=== PATIENT | male | born 1970 | race Caucasian/White ===

== ENCOUNTER → 2024-03-22 13:59 | Outpatient (CLI) | payer OTHER, SELFPAY | PROVIDERS: Referring Provider Chiropractor; Visit Provider Chiropractor | DX: R06.02 Shortness of breath (principal); R94.2 Abnormal results of pulmonary function studies | CPT/HCPCS: 94060 ==

== ENCOUNTER → 2024-11-26 15:02 | Outpatient (CLI) | payer OTHER, SELFPAY ==
--- NOTE | 2024-11-26 15:06 | DI.ECHO.S_ITS ---
[facility] : : [address] : : [place] : : [id number] : : Phone: [phone] Echocardiogram Report + + :Name: WILMAR HENAO Study Date: 11/26/2024 Height: 73 in : :Hospital ReadingLocation: Weight: 218 lb : : Gender: Male BSA: 2.2 m2 : :: 1970 Age: 54 yrs BP: 145/108 mmHg: :Reason For Study: ATRIAL FIBRILLATION : :Ordering Physician: ROMAN, : :IBETH Performed By: Grace Ragsdale : :Referring: IBETH OWENS : + + Interpretation Summary The ejection fraction is estimated to be 55-60%. Normal diastolic function. The right ventricular systolic function is normal. Pulmonary artery pressures cannot be estimated because of the lack of a measurable TR jet velocity but the IVC suggests a CVP of around 3 mmHg. No significant valvular abnormalities. Procedure: A two-dimensional transthoracic echocardiogram with color flow and Doppler was performed. The study quality was technically adequate. There is no prior echocardiogram noted for this patient. The patient was in sinus rhythm with heart rates between 76-86 bpm during the exam. Left Ventricle: The left ventricle is normal in size and wall thickness. The ejection fraction is estimated to be 55-60%. There are no obvious focal wall motion abnormalities noted but poor endocardial definition reduces the sensitivity for the detection of such. Normal diastolic function. Right Ventricle: The right ventricle is normal size. The right ventricular systolic function is normal. Atria: The left atrial size is normal. Right atrial size is normal. There is no Doppler evidence for an interatrial shunt. Mitral Valve: The mitral valve leaflets appear to open well. There is no mitral regurgitation noted. Aortic Valve: The aortic valve is trileaflet. The aortic valve opens well. There is no aortic valve stenosis. No aortic regurgitation is present. Tricuspid Valve: The tricuspid valve leaflets are thin and pliable. No tricuspid regurgitation. Pulmonary artery pressures cannot be estimated because of the lack of a measurable TR jet velocity but the IVC suggests a CVP of around 3 mmHg. Pulmonic Valve: The pulmonic valve leaflets are thin and pliable; valve motion is normal. There is trace pulmonic regurgitation. Great Vessels: The aortic root is normal size. The dimensions of the ascending aorta are normal. The IVC is of normal diameter and collapses greater than 50% with a sniff. This suggests a low right atrial pressure of 3 mm Hg. Pericardium/ Pleura There is no pericardial effusion. There is no pleural effusion. MMode/2D Measurements & Calculations LVIDd: 4.5 cm LVOT diam: 2.2 cm LVIDs: 3.1 cm Ao root diam: 3.1 cm FS: 32.4 % asc Aorta Diam: 3.2 cm IVSd: 0.92 cm Ao Arch Diam (Prox Trans): 3.0 cm LVPWd: 0.95 cm LV mares. diameter/BSA (cm/m^2): 2.0 LV sys. diameter/BSA (cm/m^2): 1.4 LA A2 area: 12.0 cm2 RA long axis: 4.3 cm LA A4 area: 10.6 cm2 RA area: 12.2 cm2 LA length (vol): 4.2 cm RA vol: 29.0 ml LA vol: 25.6 ml RA : 13.0 ml/m2 LA vol index: 11.5 ml/m2 IVC diam: 1.6 cm RVD1 (basal): 3.7 cm RVD2 (mid): 3.7 cm TAPSE: 1.8 cm Doppler Measurements & Calculations Ao V2 max: 135.2 cm/sec LVOT Max Teto: 94.5 cm/sec Ao V2 mean: 93.4 cm/sec LV V1 max P.6 mmHg Ao max P.3 mmHg LV V1 VTI: 15.9 cm Ao mean P.9 mmHg BILLY(I,D): 2.7 cm2 Ao V2 VTI: 22.4 cm BILLY(V,D): 2.7 cm2 sev ratio: 0.71 BILLY indexed to BSA (cm^2/m^2): 1.2 MV E max teto: 62.5 cm/sec PA V2 max: 100.7 cm/sec MV A max teto: 59.9 cm/sec PA V2 mean: 67.1 cm/sec MV E/A: 1.0 PA mean P.0 mmHg Med Peak E' Teto: 6.5 cm/sec PA pr(Accel): 35.3 mmHg E/E' med: 9.7 Lat Peak E' Teto: 7.7 cm/sec E/E' lat: 8.1 E/e' average: 8.9 MV dec time: 0.25 sec SV(LVOT): 60.9 ml Reading Physician:04:[id number] PM
--- NOTE | 2024-11-26 16:01 | EKG_ITS ---
[address] [address] Test Date: 2024-11-26 Pat Name: Levi Bernard Department: DEFAULT Room: Gender: Male Research Laboratory Manager: CHARLEE : 1970 Requested By: Order Number: [id number] Reading MD: Ponce Lima MD Measurements Intervals [place] Rate: 91 P: 42 IN: 132 QRS: 59 QRSD: 86 T: -16 QT: 344 QTc: 423 Interpretive Statements Normal sinus rhythm Cannot rule out Inferior infarct , age undetermined Electronically Signed On 11-28-2024 14:43:40 PDT by Ponce Lima MD
[2024-11-26 17:05] LABS: Free T3, Triiodothyronine Free 5.30 pg/mL (2.77-5.27); Free T4, Direct Thyroxine 0.93 ng/dL (0.78-2.19)
[2024-11-26 17:19] LABS: Thyroid Stimulating Hormone 1.30 uIU/mL (0.47-4.68)
== END ==
PROVIDERS: Referring Provider Chiropractor; Visit Provider Chiropractor
DX: I48.91 Unspecified atrial fibrillation (principal); E04.1 Nontoxic single thyroid nodule
CPT/HCPCS: 36415; 84439; 84443; 84481; 93005; 93306